=== PATIENT | female | born 1935 | race Caucasian/White ===

== ENCOUNTER 2018-04-23 09:35 | Observation (INO) ==
[2018-04-23] MEDS ORDERED: Aspirin 325 MG Tablet PO ONE (09:40)
--- NOTE | 2018-04-23 09:45 | ED ---
HPI General Chief Complaint: Chest Pain Stated Complaint: chest pain Time Seen by Provider: 04/23/18 09:40 Source: patient Mode of arrival: ambulatory Limitations: no limitations History of Present Illness HPI narrative: 83-year-old female patient with history of atrial fibrillation currently on Pradaxa, hypertension, high cholesterol, presents to the ER today because she woke up this morning with a 9 out of 10 left sided pressure-like chest discomfort or radiation down to her left arm. She states it is now subsiding and is currently a 4 -5 out of 10. She denies any vomiting, coughing , shortness of breath, fevers, or other symptoms. She states that symptoms have occurred in the past, and she states that it is usually minor and it goes away on its own. Related Data Home Medications Medication Instructions Recorded Confirmed amlodipine-benazepril 1 tab PO HS 04/23/18 04/23/18 dabigatran etexilate [Pradaxa] 1 tab PO BID 04/23/18 04/23/18 metoprolol tartrate 1 tab PO BID 04/23/18 04/23/18 simvastatin 20 mg PO QPM 04/23/18 04/23/18 Allergies Allergy/AdvReac Type Severity Reaction Status Date / Time No Known Allergies Allergy Verified 04/23/18 09:39 Review of Systems ROS: all other systems reviewed are negative PMFSH History History Provided By: Patient Medical History Medical History Aortic stenosis (Acute) Atrial fibrillation (Acute) Social History Social History Substance History: No History of Abuse Second Hand Smoke Exposure: No Smoking Status: Never smoker How Often Do You Have a Drink Containing Alcohol: Never Recent Travel in [facility] within the Last 8 Weeks: No Recent Out of Country Travel within the Last 8 Weeks: No Exam Narrative Exam Narrative: GENERAL: Well-developed elderly female patient currently and mild to moderate distress. Awake and oriented x3. SKIN: Focused skin assessment warm/dry. HEAD: Atraumatic. Normocephalic. EYES: Pupils equal and round. No scleral icterus. No injection or drainage. ENT: No nasal bleeding or discharge. Mucous membranes pink and moist. NECK: Trachea midline. No JVD. CARDIOVASCULAR: Fast and irregularly irregular. RESPIRATORY: No accessory muscle use. Clear to auscultation. Breath sounds equal bilaterally. GASTROINTESTINAL: Abdomen soft, non-tender, nondistended. Hepatic and splenic margins not palpable. MUSCULOSKELETAL: No obvious deformities. No clubbing. No cyanosis. No edema. NEUROLOGICAL: Awake and alert. No obvious cranial nerve deficits. Motor grossly within normal limits. Normal speech. PSYCHIATRIC: Appropriate mood and affect; insight and judgment normal. Course Initial Documented Vital Signs Temperature 97.4 F L 04/23/18 09:40 Pulse Rate 92 H 04/23/18 09:40 Respiratory Rate 18 04/23/18 09:40 Blood Pressure 128/90 04/23/18 09:40 Pulse Oximetry 98 04/23/18 09:40 Last Documented Vital Signs Temperature 97.4 F L 04/23/18 09:40 Pulse Rate 77 04/23/18 09:41 Respiratory Rate 16 04/23/18 10:39 Blood Pressure 128/90 04/23/18 09:40 Pulse Oximetry 97 04/23/18 09:41 Medical Decision Making MDM Narrative Medical decision making narrative: ACS versus dysrhythmias versus anxiety attack. EKG shows A. fib with RVR, patient has previous history of A. fib. Vital signs are stable otherwise. Her heart rate came down on its own to 70s in the ER without further therapy. Chest x-ray was fairly unremarkable. Lab work was fairly unremarkable. However, considering patient's medical history, I think that she should get her heart further evaluated. Case is discussed with Dr. Ambrose for admission. Medical Screen Exam Complete: Yes Emergency Medical Condition: Yes Differential Diagnosis Differential Diagnosis: Dysrhythmias versus ACS versus anxiety attack Lab Data Result diagrams: 04/23/18 09:41 04/23/18 09:41 Lab Results 04/23/18 04/23/18 Range/Units 09:41 09:41 CBC w Diff Auto diff final WBC 6.1 (4.0-11.0) th/mm3 RBC 4.39 (4.00-5.30) mil/mm3 Hgb 14.0 (11.6-15.3) gm/dL Hct 41.7 (35.0-46.0) % MCV 94.9 (80.0-100.0) fL MCH 31.9 (27.0-34.0) pg MCHC 33.6 (32.0-36.0) % RDW 12.8 (11.6-17.2) % Plt Count 240 (150-450) th/mm3 MPV 7.7 (7.0-11.0) fL Neut % (Auto) 60.4 (16.0-70.0) % Lymph % (Auto) 25.2 (9.0-44.0) % [place] % (Auto) 9.3 H (0.0-8.0) % Eos % (Auto) 3.6 (0.0-4.0) % Baso % (Auto) 1.5 (0.0-2.0) % Neut # (Auto) 3.7 (1.8-7.7) th/mm3 Lymph # (Auto) 1.5 (1.0-4.8) th/mm3 [place] # (Auto) 0.6 (0.0-0.9) th/mm3 Eos # (Auto) 0.2 (0.0-0.4) th/mm3 Baso # (Auto) 0.1 (0.0-0.2) th/mm3 WBC Differential . Differential Comment . Sodium 140 (136-145) meq/L Potassium 3.6 (3.5-5.1) meq/L Chloride 104 (98-107) meq/L Carbon Dioxide 26.2 (21.0-32.0) meq/L Anion Gap 10 (5-15) meq/L BUN 12 (7-18) mg/dL Creatinine 0.87 (0.50-1.00) mg/dL Estimated GFR 62 L (>89) mL/min Random Glucose 119 H (74-106) mg/dL Calcium 9.3 (8.5-10.1) mg/dL Total Bilirubin 0.9 (0.2-1.0) mg/dL AST 21 (15-37) U/L ALT 20 (10-53) U/L Alkaline Phosphatase 85 (45-117) U/L Troponin I Less than 0.02 L (0.02-0.05) ng/mL Total Protein 7.6 (6.4-8.2) g/dL Albumin 3.9 (3.4-5.0) g/dL Imaging Data Attestation: I personally reviewed and interpreted this imaging study as follows : Radiologist's impression: Chest X-Ray 04/23/18 09:41 CONCLUSION: No acute disease ECG Data Attestation: I personally reviewed and interpreted this ECG as follows: Interpretation: EKG shows atrial fibrillation with RVR at a rate of 100 bpm. No signs of acute ST elevations or depressions. Discharge Plan Discharge Disposition Patient Disposition: 30 Still Patient Discharge Condition Condition: Stable Discharge Details Anticipated Discharge Date: 04/23/18 Diagnosis: Atypical chest pain Physicians Team ED Provider: Benjie Juraez Primary Care Provider: NON STAFF,PROVIDER Rxs /Orders / Referrals /Forms Prescriptions: No Action amlodipine-benazepril 2.5-10 mg Capsule 1 tab PO HS RF: 0 simvastatin 20 mg Tablet 20 mg PO QPM RF: 0 metoprolol tartrate 25 mg Tablet 1 tab PO BID RF: 0 dabigatran etexilate [Pradaxa] 75 mg Capsule 1 tab PO BID RF: 0 Discharge Instructions Patient Printed Instructions: Chest Pain (ED) Status ED Status: With Doctor
[2018-04-23 09:52] LABS: Baso # (Auto) 0.1 th/mm3 (0.0-0.2); Baso % (Auto) 1.5 % (0.0-2.0); Eos # (Auto) 0.2 th/mm3 (0.0-0.4); Eos % (Auto) 3.6 % (0.0-4.0); Hematocrit 41.7 % (35.0-46.0); Lymph # (Auto) 1.5 th/mm3 (1.0-4.8); Lymph % (Auto) 25.2 % (9.0-44.0); Mean Corpuscular HGB Conc 33.6 % (32.0-36.0); Mean Corpuscular Hemoglobin 31.9 pg (27.0-34.0); Mean Corpuscular Volume 94.9 fL (80.0-100.0); Mean Platelet Volume 7.7 fL (7.0-11.0); Mono # (Auto) 0.6 th/mm3 (0.0-0.9); Mono % (Auto) 9.3 % (0.0-8.0); Neut # (Auto) 3.7 th/mm3 (1.8-7.7); Neut % (Auto) 60.4 % (16.0-70.0); Platelet Count 240 th/mm3 (150-450); Red Blood Count 4.39 mil/mm3 (4.00-5.30); Red Cell Distribution Width 12.8 % (11.6-17.2); White Blood Count 6.1 th/mm3 (4.0-11.0)
--- NOTE | 2018-04-23 10:04 | XR ---
EXAM DATE: 04/23/2018 9:41 AM EDT AGE/SEX: 83 years / Female INDICATIONS: Patient states chest pains. CLINICAL DATA: This is the patient's initial encounter. Patient reports that signs and symptoms have been present for 1 day and indicates a pain score of 6/10. MEDICAL/SURGICAL HISTORY: . A-Fib None. COMPARISON: No prior exams available for comparison. FINDINGS: Lungs are focally clear. No pleural effusion evident. Cardiac contours are satisfactory with borderli ne heart size. CONCLUSION: No acute disease Electronically signed by: Aki Ascencio MD 04/23/2018 10:03 AM EDT
[2018-04-23 10:16] LABS: Calcium 9.3 mg/dL (8.5-10.1)
[2018-04-23 10:17] LABS: Albumin 3.9 g/dL (3.4-5.0); Blood Urea Nitrogen 12 mg/dL (7-18); Carbon Dioxide 26.2 meq/L (21.0-32.0); Glucose,Random 119 mg/dL (74-106)
[2018-04-23 10:20] LABS: Alanine Aminotransferase 20 U/L (10-53); Aspartate Aminotransferase 21 U/L (15-37); Glomerular Filtration Rate 62 mL/min (>89)
[2018-04-23 10:21] LABS: Total Protein 7.6 g/dL (6.4-8.2)
[2018-04-23 10:23] LABS: Alkaline Phosphatase 85 U/L (45-117); Anion Gap 10 meq/L (5-15); Chloride 104 meq/L (98-107); Potassium 3.6 meq/L (3.5-5.1); Sodium 140 meq/L (136-145)
[2018-04-23] MEDS ORDERED: Acetaminophen 325 MG Tablet PO PRN (15:00)
[2018-04-23 15:25] LABS: Troponin I 0.1 ng/mL (0.02-0.05)
--- NOTE | 2018-04-23 15:46 | P.CONCA ---
History of Present Illness Primary Care Provider: PROVIDER NON STAFF History of Present Illness: 83-year-old female with a past medical history of atrial fibrillation on Pradaxa , mild to moderate aortic stenosis, HTN, HLD who presented for chest pain. 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 She was concerned because she had an episode of chest pain this morning at rest lasting about 1 minute and came for evaluation of this. She states she gets chest pains occasionally, but this lasted longer than her occasional chest pains and she was concerned. She denies any prior history of CAD. She reports she last had a nuclear stress test about 3 years ago that was reportedly normal. She reports her last echocardiogram was approximately a year and a half ago. EKG on presentation shows A. fib, rate 83, no ischemic changes noted. Troponin 0.02->0.10. Review of Systems All other systems reviewed negative except as stated in HPI PMFSH - History History Provided By: Patient - Medical History Medical History: Medical History (Last Updated 04/23/18 @ 15:37 by LEMUEL Morales) Aortic stenosis Atrial fibrillation HLD (hyperlipidemia) HTN (hypertension) - Tobacco History Second Hand Smoke Exposure: No Tobacco Use In Past 30 Days: No Smoking Status: Never smoker - Alcohol History How Often Do You Have a Drink Containing Alcohol: Never - Substance Use History Substance History: No History of Abuse - Travel History Recent Travel in the [place] Within the Last 8 Weeks: No Recent Travel Out of the Country Within the Last 8 Weeks: No - Immunization History Tetanus Immunization: Unsure Medications and Allergies Active Medications: Active Medications Acetaminophen (Tylenol) 650 mg PO Q4H PRN PRN Reason: Temp > 100.4 Al Hydroxide/Mg Hydroxide (Milk Of Nick Liq) 30 ml PO Q12H PRN PRN Reason: Mild Constipation Ondansetron HCl (Zofran Inj) 4 mg IV.PUSH Q6H PRN PRN Reason: NAUSEA OR VOMITING Sodium Chloride (Ns Flush) 2 ml IV.FLUSH UNSCH PRN PRN Reason: FLUSH AFTER USING IV ACCESS Allergies Allergy/AdvReac Type Severity Reaction Status Date / Time No Known Allergies Allergy Verified 04/23/18 09:39 Home Medications Medication Instructions Recorded Confirmed Type amlodipine-benazepril 1 tab PO HS 04/23/18 04/23/18 History dabigatran etexilate [Pradaxa] 1 tab PO BID 04/23/18 04/23/18 History metoprolol tartrate 1 tab PO BID 04/23/18 04/23/18 History simvastatin 20 mg PO QPM 04/23/18 04/23/18 History Exam Vital signs: Vital Signs 04/23/18 09:40 04/23/18 09:41 04/23/18 09:55 Temperature 97.4 F L Pulse Rate 92 H 77 86 Respiratory Rate 18 Blood Pressure 128/90 Pulse Oximetry 98 97 98 04/23/18 09:58 04/23/18 10:00 04/23/18 10:39 Temperature Pulse Rate 80 78 Respiratory Rate 16 Blood Pressure 114/61 Pulse Oximetry 98 97 04/23/18 10:58 04/23/18 11:00 04/23/18 12:00 Temperature 97.0 F L Pulse Rate 72 72 83 Respiratory Rate 20 Blood Pressure 108/69 126/85 Pulse Oximetry 95 94 L Intake & Output 04/22/18 04/23/18 04/23/18 18:59 06:59 18:59 Weight 180 lb 12.465 oz Narrative: GENERAL: Well-developed well-nourished. In no acute distress. NECK: No carotid bruits. No JVD. CARDIOVASCULAR: Irregular controlled rate and irregular rhythm. 1/6 CONSUELO appreciated. RESPIRATORY: No accessory muscle use. Clear to auscultation. Breath sounds equal bilaterally. MUSCULOSKELETAL: No clubbing or cyanosis. No edema. NEUROLOGICAL: Awake and alert. Normal speech. Results 04/23/18 09:41 04/23/18 09:41 Cardiac Enzymes 04/23/18 04/23/18 Range/Units 09:41 14:40 AST 21 (15-37) U/L Troponin I Less than 0.02 L 0.10 H (0.02-0.05) ng/mL CBC 04/23/18 Range/Units 09:41 WBC 6.1 (4.0-11.0) th/mm3 RBC 4.39 (4.00-5.30) mil/mm3 Hgb 14.0 (11.6-15.3) gm/dL Hct 41.7 (35.0-46.0) % Plt Count 240 (150-450) th/mm3 Neut # (Auto) 3.7 (1.8-7.7) th/mm3 Lymph # (Auto) 1.5 (1.0-4.8) th/mm3 [place] # (Auto) 0.6 (0.0-0.9) th/mm3 Eos # (Auto) 0.2 (0.0-0.4) th/mm3 Baso # (Auto) 0.1 (0.0-0.2) th/mm3 Comprehensive Metabolic Panel 04/23/18 Range/Units 09:41 Sodium 140 (136-145) meq/L Potassium 3.6 (3.5-5.1) meq/L Chloride 104 (98-107) meq/L Carbon Dioxide 26.2 (21.0-32.0) meq/L BUN 12 (7-18) mg/dL Creatinine 0.87 (0.50-1.00) mg/dL Calcium 9.3 (8.5-10.1) mg/dL AST 21 (15-37) U/L ALT 20 (10-53) U/L Alkaline Phosphatase 85 (45-117) U/L Total Protein 7.6 (6.4-8.2) g/dL Albumin 3.9 (3.4-5.0) g/dL Intake and Output 04/23/18 04/23/18 04/23/18 06:59 14:59 22:59 Other: Weight 180 lb 12.465 oz Patient Weight 04/24/18 06:59 Weight 180 lb 12.465 oz - Imaging and Cardiology Imaging: Impressions Chest X-Ray 04/23/18 09:41 CONCLUSION: No acute disease Assessment and Plan - Plan 83-year-old female with a past medical history of atrial fibrillation on Pradaxa , mild to moderate aortic stenosis, HTN, HLD who presented for chest pain Chest pain with elevated troponin: Possible NSTEMI. Continue aspirin. Lovenox for now. Transfer to [facility] for [facility] of [facility]. Continue statin. Atrial fibrillation: Chronic. Continue metoprolol for rate control. Hold Pradaxa and anticoagulation with Lovenox for now. Aortic stenosis: Reportedly mild to moderate per patient. Updated echocardiogram ordered. Discussed Condition With: Patient, RN, hospitalist, Dr. Saucedo
--- NOTE | 2018-04-23 16:04 | P.HP ---
History of Present Illness Primary Care Physician: PROVIDER NON STAFF Chief Complaint: Chest pain History of Present Illness: 83-year-old female for past medical history of hypertension, hyperlipidemia, atrial fibrillation on Pradaxa, mild aortic stenosis presented to the ED for evaluation acute onset of substernal chest pain rated 5/10 in intensity without any radiation or associated diaphoresis. The pain was described as sharp and lasted well over 10 minutes. Patient denies any inciting events. She has no GI bleed. Initial cardiac enzyme was 0.02 however a follow-up went up to 0.1. - Diagnosis (1) NSTEMI (non-ST elevation myocardial infarction) (2) Atrial flutter, paroxysmal Review of Systems All other systems reviewed negative except as stated in HPI PMFSH - History History Provided By: Patient - Medical History Medical History: Medical History (Last Updated 04/23/18 @ 15:37 by LEMUEL Morales) Aortic stenosis Atrial fibrillation HLD (hyperlipidemia) HTN (hypertension) - Family History Family History: Family History (Last Updated 04/23/18 @ 15:58 by Shawn Ambrose MD) Other No history of heart disease - Tobacco History Second Hand Smoke Exposure: No Tobacco Use In Past 30 Days: No Smoking Status: Never smoker - Alcohol History How Often Do You Have a Drink Containing Alcohol: Never - Substance Use History Substance History: No History of Abuse - Travel History Recent Travel in the [place] Within the Last 8 Weeks: No Recent Travel Out of the Country Within the Last 8 Weeks: No - Immunization History Tetanus Immunization: Unsure Medications and Allergies Active Medications: Active Medications Acetaminophen (Tylenol) 650 mg PO Q4H PRN PRN Reason: Temp > 100.4 Al Hydroxide/Mg Hydroxide (Milk Of Nick Liq) 30 ml PO Q12H PRN PRN Reason: Mild Constipation Aspirin (Ecotrin) 81 mg PO DAILY JOSELITO Enoxaparin Sodium (Lovenox Inj) 90 mg SQ Q12HR JOSELITO Ondansetron HCl (Zofran Inj) 4 mg IV.PUSH Q6H PRN PRN Reason: NAUSEA OR VOMITING Sodium Chloride (Ns Flush) 2 ml IV.FLUSH UNSCH PRN PRN Reason: FLUSH AFTER USING IV ACCESS Allergies Allergy/AdvReac Type Severity Reaction Status Date / Time No Known Allergies Allergy Verified 04/23/18 09:39 Home Medications Medication Instructions Recorded Confirmed Type amlodipine-benazepril 1 tab PO HS 04/23/18 04/23/18 History dabigatran etexilate [Pradaxa] 1 tab PO BID 04/23/18 04/23/18 History metoprolol tartrate 1 tab PO BID 04/23/18 04/23/18 History simvastatin 20 mg PO QPM 04/23/18 04/23/18 History Exam Vital signs: Vital Signs 04/23/18 09:40 04/23/18 09:41 04/23/18 09:55 Temperature 97.4 F L Pulse Rate 92 H 77 86 Respiratory Rate 18 Blood Pressure 128/90 Pulse Oximetry 98 97 98 04/23/18 09:58 04/23/18 10:00 04/23/18 10:39 Temperature Pulse Rate 80 78 Respiratory Rate 16 Blood Pressure 114/61 Pulse Oximetry 98 97 04/23/18 10:58 04/23/18 11:00 04/23/18 12:00 Temperature 97.0 F L Pulse Rate 72 72 83 Respiratory Rate 20 Blood Pressure 108/69 126/85 Pulse Oximetry 95 94 L Intake & Output 04/22/18 04/23/18 04/23/18 18:59 06:59 18:59 Weight 82 kg Narrative: GENERAL: NAD SKIN: Warm and dry. HEAD: Atraumatic. Normocephalic. EYES: Pupils equal and round. No scleral icterus. No injection or drainage. ENT: No nasal bleeding or discharge. Mucous membranes pink and moist. NECK: Trachea midline. No JVD. CARDIOVASCULAR: irreg Regular rate and rhythm. RESPIRATORY: No accessory muscle use. Clear to auscultation. Breath sounds equal bilaterally. GASTROINTESTINAL: Abdomen soft, non-tender, nondistended. Hepatic and splenic margins not palpable. MUSCULOSKELETAL: Extremities without clubbing, cyanosis, or edema. No obvious deformities. NEUROLOGICAL: Awake and alert. No obvious cranial nerve deficits. Motor grossly within normal limits. Five out of 5 muscle strength in the arms and legs. Normal speech. PSYCHIATRIC: Appropriate mood and affect; insight and judgment normal. Results - Labs CBC & Chem 7: 04/23/18 09:41 04/23/18 09:41 Labs: Laboratory Results - last 24 hr 04/23/18 04/23/18 04/23/18 09:41 09:41 14:40 CBC w Diff Auto diff final WBC 6.1 RBC 4.39 Hgb 14.0 Hct 41.7 MCV 94.9 MCH 31.9 MCHC 33.6 RDW 12.8 Plt Count 240 MPV 7.7 Neut % (Auto) 60.4 Lymph % (Auto) 25.2 [place] % (Auto) 9.3 H Eos % (Auto) 3.6 Baso % (Auto) 1.5 Neut # (Auto) 3.7 Lymph # (Auto) 1.5 [place] # (Auto) 0.6 Eos # (Auto) 0.2 Baso # (Auto) 0.1 WBC Differential . Differential Comment . Sodium 140 Potassium 3.6 Chloride 104 Carbon Dioxide 26.2 Anion Gap 10 BUN 12 Creatinine 0.87 Estimated GFR 62 L Random Glucose 119 H Calcium 9.3 Total Bilirubin 0.9 AST 21 ALT 20 Alkaline Phosphatase 85 Total Creatine Kinase 59 Troponin I Less than 0.02 L 0.10 H Total Protein 7.6 Albumin 3.9 - Imaging Impressions Chest X-Ray 04/23/18 09:41 CONCLUSION: No acute disease Caprini VTE Risk Assessment Caprini VTE Risk Assessment: Moderate/High Risk (score >= 2) Caprini Risk Assessment Model: Point Value = 1 Point Value = 2 Point Value = 3 Point Value = 5 Age 41-60 Minor surgery BMI > 25 kg/m2 Swollen legs Varicose veins or History of unexplained or recurrent spontaneous Oral contraceptives or hormone replacement Sepsis (< 1 month) Serious lung disease, including pneumonia (< 1 month) Abnormal pulmonary function Acute myocardial infarction Congestive heart failure (< 1 month) History of inflammatory bowel disease Medical patient at bed rest Age 61-74 Arthroscopic surgery Major open surgery (> 45 min) Laparoscopic surgery (> 45 min) Malignancy Confined to bed (> 72 hours) Immobilizing plaster cast Central venous access Age >= 75 History of VTE Family history of VTE Factor V Leiden Prothrombin [id number] Lupus anticoagulant Anticardiolipin antibodies Elevated serum homocysteine Heparin-induced thrombocytopenia Other congenital or acquired thrombophilia Stroke (< 1 month) Elective arthroplasty Hip, pelvis, or leg fracture Acute spinal cord injury (< 1 month) Prophylaxis Regimen: Total Risk Factor Score Risk Level Prophylaxis Regimen 0-1 Low Early ambulation 2 Moderate Order ONE of the following: *Sequential Compression Device (SCD) *Heparin 5000 units SQ BID 3-4 Higher Order ONE of the following medications: *Heparin 5000 units SQ TID *Enoxaparin/Lovenox 40 mg SQ daily (WT < 150 kg, CrCl > 30 mL/min) *Enoxaparin/Lovenox 30 mg SQ daily (WT < 150 kg, CrCl > 10-29 mL/min) *Enoxaparin/Lovenox 30 mg SQ BID (WT < 150 kg, CrCl > 30 mL/min) AND/OR *Sequential Compression Device (SCD) 5 or more Highest Order ONE of the following medications: *Heparin 5000 units SQ TID (Preferred with Epidurals) *Enoxaparin/Lovenox 40 mg SQ daily (WT < 150 kg, CrCl > 30 mL/min) *Enoxaparin/Lovenox 30 mg SQ daily (WT < 150 kg, CrCl > 10-29 mL/min) *Enoxaparin/Lovenox 30 mg SQ BID (WT < 150 kg, CrCl > 30 mL/min) AND *Sequential Compression Device (SCD) Assessment and Plan - Assessment (1) NSTEMI (non-ST elevation myocardial infarction) Code(s): I21.4 - Non-ST elevation (NSTEMI) myocardial infarction Status: Acute (2) Atrial flutter, paroxysmal Code(s): I48.92 - Unspecified atrial flutter Status: Acute - Plan 83-year-old female with Non-ST elevation AR Cardiology consulted for possible evaluation for left heart catheterization Will resume statin, beta-shorty and hold Pradaxa. Start Lovenox Transfer patient to [facility] Telemetry monitoring, nitroglycerin sublingual Check 2D echo Chronic atrial fibrillation Resume beta-shorty, hold Pradaxa Other chronic medical conditions Resume outpatient medications DVT prophylaxis: Lovenox
[2018-04-23] MEDS: Enoxaparin Inj 100 MG/ML Syringe SQ SCH (20:02)
[2018-04-23] MEDS: Metoprolol Tartrate 25 MG Tablet PO SCH (20:13)
[2018-04-23 22:13] LABS: Troponin I 0.05 ng/mL (0.02-0.05)
[2018-04-24 04:17] LABS: Baso # (Auto) 0.1 th/mm3 (0.0-0.2); Eos # (Auto) 0.2 th/mm3 (0.0-0.4); Hematocrit 39.2 % (35.0-46.0); Hemoglobin 13.3 gm/dL (11.6-15.3); Lymph # (Auto) 1.4 th/mm3 (1.0-4.8); Mean Corpuscular Hemoglobin 32.2 pg (27.0-34.0); Mean Corpuscular Volume 94.7 fL (80.0-100.0); Mean Platelet Volume 7.7 fL (7.0-11.0); Mono # (Auto) 0.7 th/mm3 (0.0-0.9); Mono % (Auto) 10.5 % (0.0-8.0); Neut # (Auto) 4.5 th/mm3 (1.8-7.7); Neut % (Auto) 65.5 % (16.0-70.0); Platelet Count 201 th/mm3 (150-450); Red Blood Count 4.15 mil/mm3 (4.00-5.30); Red Cell Distribution Width 12.9 % (11.6-17.2); White Blood Count 6.8 th/mm3 (4.0-11.0)
[2018-04-24 04:54] LABS: Alanine Aminotransferase 15 U/L (10-53); Albumin 3.4 g/dL (3.4-5.0); Anion Gap 10 meq/L (5-15); Aspartate Aminotransferase 18 U/L (15-37); Blood Urea Nitrogen 12 mg/dL (7-18); Calcium 8.8 mg/dL (8.5-10.1); Carbon Dioxide 27.4 meq/L (21.0-32.0); Chloride 106 meq/L (98-107); Glomerular Filtration Rate 81 mL/min (>89); Glucose,Random 97 mg/dL (74-106); Potassium 4.1 meq/L (3.5-5.1); Sodium 143 meq/L (136-145)
[2018-04-24 04:56] LABS: Alkaline Phosphatase 72 U/L (45-117); Total Protein 6.8 g/dL (6.4-8.2)
[2018-04-24] MEDS: Metoprolol Tartrate 25 MG Tablet PO SCH (08:33)
[2018-04-24] MEDS: Enoxaparin Inj 100 MG/ML Syringe SQ SCH (08:36)
--- NOTE | 2018-04-24 09:23 | P.PNCA ---
Subjective Interval history: One episode of sharp chest pain lasting 2 minutes Sitting up in a chair with no complaints Eager to go home Medications and Allergies Active Medications: Active Medications Acetaminophen (Tylenol) 650 mg PO Q4H PRN PRN Reason: Temp > 100.4 Al Hydroxide/Mg Hydroxide (Milk Of Magnrachael Liq) 30 ml PO Q12H PRN PRN Reason: Mild Constipation Aspirin (Ecotrin) 81 mg PO DAILY [facility] Last Admin: 04/24/18 08:33 Dose: 81 mg Enoxaparin Sodium (Lovenox Inj) 90 mg SQ Q12HR [facility] Last Admin: 04/24/18 08:36 Dose: Not Given Metoprolol Tartrate (Lopressor) 25 mg PO BID [facility] Last Admin: 04/24/18 08:33 Dose: 25 mg Nitroglycerin (Nitrostat Sl) 0.4 mg SL Q5M PRN PRN Reason: CHEST PAIN Ondansetron HCl (Zofran Inj) 4 mg IV.PUSH Q6H PRN PRN Reason: NAUSEA OR VOMITING Pravastatin Sodium (Pravachol) 20 mg PO QPM [facility] Last Admin: 04/23/18 20:13 Dose: 20 mg Sodium Chloride (Ns Flush) 2 ml IV.FLUSH UNSCH PRN PRN Reason: FLUSH AFTER USING IV ACCESS Allergies Allergy/AdvReac Type Severity Reaction Status Date / Time No Known Allergies Allergy Verified 04/23/18 09:39 Home Medications Medication Instructions Recorded Confirmed Type amlodipine-benazepril 1 tab PO HS 04/23/18 04/23/18 History dabigatran etexilate [Pradaxa] 1 tab PO BID 04/23/18 04/23/18 History metoprolol tartrate 1 tab PO BID 04/23/18 04/23/18 History simvastatin 10 mg PO QPM 04/23/18 04/23/18 History Physical Exam Vital signs: Vital Signs 04/23/18 09:40 04/23/18 09:41 04/23/18 09:55 Temperature 97.4 F L Pulse Rate 92 H 77 86 Respiratory Rate 18 Blood Pressure 128/90 Pulse Oximetry 98 97 98 04/23/18 09:58 04/23/18 10:00 04/23/18 10:39 Temperature Pulse Rate 80 78 Respiratory Rate 16 Blood Pressure 114/61 Pulse Oximetry 98 97 04/23/18 10:58 04/23/18 11:00 04/23/18 12:00 Temperature 97.0 F L Pulse Rate 72 72 83 Respiratory Rate 20 Blood Pressure 108/69 126/85 Pulse Oximetry 95 94 L 04/23/18 16:00 04/23/18 20:00 04/24/18 01:03 Temperature 96.8 F L 96.9 F L 97.7 F Pulse Rate 76 78 89 Respiratory Rate 20 20 18 Blood Pressure 122/69 128/70 144/83 H Pulse Oximetry 94 L 97 96 04/24/18 02:00 04/24/18 03:00 04/24/18 04:00 Temperature 97.9 F Pulse Rate 62 64 103 H Respiratory Rate 18 Blood Pressure 145/85 H Pulse Oximetry 98 04/24/18 05:00 04/24/18 06:00 Temperature Pulse Rate 98 H 82 Respiratory Rate Blood Pressure Pulse Oximetry Intake & Output 04/23/18 04/24/18 04/24/18 18:59 06:59 18:59 Intake Total 480 / 480 Output Total 200 / 200 Balance 480 / 480 -200 / -200 Weight 82 kg Intake: Oral 480 / 480 Output: Urine 200 / 200 Other: # Voids 1 - Constitutional no acute distress - Routine HEENT Exam Eye: Present: EOMI, PERRL ENT: Present: mucous membranes moist - Routine Neck Exam Absent: JVD - Routine Respiratory Exam Present: CTA bilaterally - Routine Cardiovascular Exam Present: RRR, murmur - Routine Abdominal Exam Present: soft, normoactive bowel sounds - Routine Extremities Exam Present: full ROM. Absent: clubbing, edema - Routine Neurological Exam Present: oriented X3, CN II-XII intact. Absent: sensory deficit, motor deficit Results 04/24/18 03:36 04/24/18 03:36 Cardiac Enzymes 04/23/18 04/23/18 04/23/18 Range/Units 09:41 14:40 21:20 AST 21 (15-37) U/L Troponin I Less than 0.02 L 0.10 H 0.05 (0.02-0.05) ng/mL 04/24/18 Range/Units 03:36 AST 18 (15-37) U/L Troponin I (0.02-0.05) ng/mL CBC 04/23/18 04/24/18 Range/Units 09:41 03:36 WBC 6.1 6.8 (4.0-11.0) th/mm3 RBC 4.39 4.15 (4.00-5.30) mil/mm3 Hgb 14.0 13.3 (11.6-15.3) gm/dL Hct 41.7 39.2 (35.0-46.0) % Plt Count 240 201 (150-450) th/mm3 Neut # (Auto) 3.7 4.5 (1.8-7.7) th/mm3 Lymph # (Auto) 1.5 1.4 (1.0-4.8) th/mm3 [place] # (Auto) 0.6 0.7 (0.0-0.9) th/mm3 Eos # (Auto) 0.2 0.2 (0.0-0.4) th/mm3 Baso # (Auto) 0.1 0.1 (0.0-0.2) th/mm3 Comprehensive Metabolic Panel 04/23/18 04/24/18 Range/Units 09:41 03:36 Sodium 140 143 (136-145) meq/L Potassium 3.6 4.1 (3.5-5.1) meq/L Chloride 104 106 (98-107) meq/L Carbon Dioxide 26.2 27.4 (21.0-32.0) meq/L BUN 12 12 (7-18) mg/dL Creatinine 0.87 0.69 (0.50-1.00) mg/dL Calcium 9.3 8.8 (8.5-10.1) mg/dL AST 21 18 (15-37) U/L ALT 20 15 (10-53) U/L Alkaline Phosphatase 85 72 (45-117) U/L Total Protein 7.6 6.8 D (6.4-8.2) g/dL Albumin 3.9 3.4 (3.4-5.0) g/dL Intake and Output 04/23/18 04/24/18 04/24/18 22:59 06:59 14:59 Intake Total 480 / 480 Output Total 200 / 200 Balance 480 / 480 -200 / -200 Intake: Oral 480 / 480 Output: Urine 200 / 200 Other: # Voids 1 - Imaging and Cardiology Imaging: Impressions Chest X-Ray 04/23/18 09:41 CONCLUSION: No acute disease Assessment and Plan - Plan 83-year-old female with a past medical history of atrial fibrillation on Pradaxa , mild to moderate aortic stenosis, HTN, HLD who presented for chest pain Chest pain with elevated troponin: Possible NSTEMI. Continue aspirin. Lovenox for now. Transfer to [facility] for consideration of [facility]. Continue statin. Atrial fibrillation: Chronic. Continue metoprolol for rate control. Hold Pradaxa and anticoagulation with Lovenox for now. Aortic stenosis: Reportedly mild to moderate per patient. Updated echocardiogram ordered. - Attending Attestation Elevated troponinsymptoms are somewhat atypical. They are nonexertional. Symptoms last only a few minutes at a time. Patient has no prior history of known heart disease. Troponin was elevated and she was transferred for consideration of cardiac catheterization. Troponin is now trended back down into the intermediate range. Patient is currently chest pain-free. We had a long discussion about potential options. Patient is going to be here till Thursday for heart catheterization if we proceeded in that direction. Given the atypical presentation and borderline troponin elevation, if the nuclear stress test was completely normal, we could consider medical management and outpatient follow-up with a logistics director in [place]. Patient was agreeable to proceed. We will plan for Lexiscan here this morning. Patient does have mild to moderate aortic valve stenosis which she has been asymptomatic.
--- NOTE | 2018-04-24 10:54 | P.PNIM ---
Subjective Interval history: Patient reports she is feeling better. No chest pain or shortness of breath. Physical Exam Vital signs: Vital Signs 04/23/18 10:58 04/23/18 11:00 04/23/18 12:00 Temperature 97.0 F L Pulse Rate 72 72 83 Respiratory Rate 20 Blood Pressure 108/69 126/85 Pulse Oximetry 95 94 L 04/23/18 16:00 04/23/18 20:00 04/24/18 01:03 Temperature 96.8 F L 96.9 F L 97.7 F Pulse Rate 76 78 89 Respiratory Rate 20 20 18 Blood Pressure 122/69 128/70 144/83 H Pulse Oximetry 94 L 97 96 04/24/18 02:00 04/24/18 03:00 04/24/18 04:00 Temperature 97.9 F Pulse Rate 62 64 103 H Respiratory Rate 18 Blood Pressure 145/85 H Pulse Oximetry 98 04/24/18 05:00 04/24/18 06:00 04/24/18 07:00 Temperature Pulse Rate 98 H 82 105 H Respiratory Rate Blood Pressure Pulse Oximetry 04/24/18 08:00 Temperature 97.9 F Pulse Rate 95 H Respiratory Rate 18 Blood Pressure 142/85 H Pulse Oximetry 94 L Intake & Output 04/23/18 04/24/18 04/24/18 18:59 06:59 18:59 Intake Total 480 / 480 Output Total 200 / 200 Balance 480 / 480 -200 / -200 Weight 82 kg Intake: Oral 480 / 480 Output: Urine 200 / 200 Other: # Voids 1 Narrative: GENERAL: This is a well-nourished, well-developed patient, in no apparent distress. CARDIOVASCULAR: Normal rate and irregular rhythm without murmurs, gallops, or rubs. RESPIRATORY: Good respiratory efforts. Breath sounds equal and clear to auscultation bilaterally. GASTROINTESTINAL: Abdomen soft, non-tender, non-distended. Normal active bowel sounds MUSCULOSKELETAL: Extremities without cyanosis, or edema. NEURO: Alert & Oriented x4 to person, place, time, situation. Moves all ext x4 PSYCH: Appropriate mood and affect. Results - Labs CBC & Chem 7: 04/24/18 03:36 04/24/18 03:36 Laboratory Results - last 24 hr 04/23/18 04/23/18 04/24/18 14:40 21:20 03:36 WBC 6.8 RBC 4.15 Hgb 13.3 Hct 39.2 MCV 94.7 MCH 32.2 MCHC 34.0 RDW 12.9 Plt Count 201 MPV 7.7 Neut % (Auto) 65.5 Lymph % (Auto) 20.0 [place] % (Auto) 10.5 H Eos % (Auto) 3.0 Baso % (Auto) 1.0 Neut # (Auto) 4.5 Lymph # (Auto) 1.4 [place] # (Auto) 0.7 Eos # (Auto) 0.2 Baso # (Auto) 0.1 WBC Differential . Differential Comment Auto diff final Sodium Potassium Chloride Carbon Dioxide Anion Gap BUN Creatinine Estimated GFR Random Glucose Calcium Total Bilirubin AST ALT Alkaline Phosphatase Total Creatine Kinase 59 61 Troponin I 0.10 H 0.05 Total Protein Albumin 04/24/18 03:36 WBC RBC Hgb Hct MCV MCH MCHC RDW Plt Count MPV Neut % (Auto) Lymph % (Auto) [place] % (Auto) Eos % (Auto) Baso % (Auto) Neut # (Auto) Lymph # (Auto) [place] # (Auto) Eos # (Auto) Baso # (Auto) WBC Differential Differential Comment Sodium 143 Potassium 4.1 Chloride 106 Carbon Dioxide 27.4 Anion Gap 10 BUN 12 Creatinine 0.69 Estimated GFR 81 L Random Glucose 97 Calcium 8.8 Total Bilirubin 1.0 AST 18 ALT 15 Alkaline Phosphatase 72 Total Creatine Kinase Troponin I Total Protein 6.8 D Albumin 3.4 Assessment and Plan - Assessment (1) NSTEMI (non-ST elevation myocardial infarction) Code(s): I21.4 - Non-ST elevation (NSTEMI) myocardial infarction Status: Acute (2) Atrial flutter, paroxysmal Code(s): I48.92 - Unspecified atrial flutter Status: Acute - Plan 83-year-old female with Non-ST elevation OR Cardiology following. The patient is symptom-free. Her nuclear stress test showed a focal fixed perfusion defect associated with hypokinesis involving the cardiac apex. The remainder of the heart demonstrates normal perfusion and wall motion. Ejection fraction is normal. I discussed the case with Dr. esposito. At this point she will be manage medically. 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 Continue statin, beta-shorty and resume Pradaxa on discharge Chronic atrial fibrillation Resume beta-shorty, resume Pradaxa Other chronic medical conditions Resume outpatient medications Discharge Planning: Discharge patient to home Condition on discharge: Improved Regular Diet as tolerated Ad Consuelo activity Rx written: None Follow-up with primary care physician
[2018-04-24] MEDS ORDERED: Regadenoson Inj 0.4 MG/5 ML Syringe IV.PUSH ONE (11:39)
--- NOTE | 2018-04-24 12:37 | ECG ---
Date Performed: 04/23/2018 Time Performed: 09:33:10 PTAGE: 83 years EKG: ATRIAL FIBRILLATION WITH SOMEWHAT RAPID VENTRICULAR RESPONSE NONSPECIFIC ST-T CHANGE AXIS V ERTICAL ABNORMAL ECG NO PREVIOUS TRACING DOCTOR: Chucho Sales Interpretating Date/Time 04/24/2018 12:36:57
--- NOTE | 2018-04-24 12:37 | ECG ---
Date Performed: 04/23/2018 Time Performed: 14:53:45 PTAGE: 83 years EKG: ATRIAL FIBRILLATION VERTICAL QRS AXIS MINOR NONSPECIFIC ST-T CHANGE ABNORMAL ECG Since PREVIOUS TRACING , no significant change noted PREVIOUS TRACIN04/23/2018 09.33 DOCTOR: Chucho Sales Interpretating Date/Time 04/24/2018 12:37:25
--- NOTE | 2018-04-24 12:40 | ECG ---
Date Performed: 04/23/2018 Time Performed: 21:17:19 PTAGE: 83 years EKG: ATRIAL FIBRILLATION VERTICAL QRS AXIS NONSPECIFIC ST-T CHANGE POOR INITIAL ANTERIOR FORCES WHICH MAY BE NORMAL VARIANT Compared to previous tracing, there is loss of R-force in V3, but this ma y be due to lead placement, otherwise no signficant change. ABNORMAL ECG PREVIOUS TRACING : 04/23/2018 14.53 DOCTOR: Chucho Sales Interpretating Date/Time 04/24/2018 12:38:42
--- NOTE | 2018-04-24 13:35 | NM ---
EXAM DATE: 04/24/2018 11:59 AM EDT AGE/SEX: 83 years / Female INDICATIONS:Angina. . Sharp chest pain with abnormal EKG. CLINICAL DATA: This is the patient's initial encounter. Patient reports that signs and symptoms have been present for 1 day and indicates a pain score of 3/10. MEDICAL/SURGICAL HISTORY: Hypercholesterolemia. Hypertension. A-fib and aortic stenosis. . COMPARISON: No prior exams available for comparison. DOSE: 8.8 mCi Tc 99m Myoview at rest 27.2 mCi [id number] at stress 0.4 mg Lexiscan STRESS SYMPTOMS: Shortness of breath and abdominal cramping. EJECTION FRACTION: 64 % TECHNIQUE: The patient underwent pharmacologic stress with infusion of prescribed dose. Continuous ECG tracing was monitored during stress. Gated SPECT imaging was performed after stress and conventi onal SPECT imaging was performed at rest. The examination was performed on a SPECT/CT scanner, both attenuation and non-corrected datasets were reviewed. FINDINGS: Distribution: The maximum perfused segment at stress is in the anterior wall. Perfusion Study: There is a small focal fixed defect involving the apex of the heart. Gated Study: There is dyskinesis identified at the apex of the heart with the remainder of the heart demonstrating normal wall motion and thickening. The ejection fraction is calculated at 64%. RISK CATEGORY: Low (<1% Annual Motality Rate) CONCLUSION: 1. Focal fixed perfusion defect associated with hypokinesis involving the cardiac apex. The remainde r of the heart demonstrates normal perfusion and wall motion. Ejection fraction is normal. Electronically signed by: Harriet Mann MD 04/24/2018 1:34 PM EDT
--- NOTE | 2018-04-24 17:53 | ECHRPT ---
Indication: Persistent atrial fibrillation CONCLUSIONS The left ventricular systolic function is moderately reduced with an estimated ejection fraction in the range of 40-45%. There was limited left ventricular wall motion assessment due to poor endocardial visualization. Mild mitral valve regurgitation. Mild aortic valve stenosis (peak grad 27, mean grad 18, VICKI 0.9). There is mild tricuspid regurgitation. BP: / HR: Rhythm: Sinus MEASUREMENTS (Male / Female) Normal Values Technical Quality:Technically difficult study 2D ECHO LV Diastolic Diameter PLAX 4.0 cm 4.2 - 5.9 / 3.9 - 5.3 cm LV Systolic Diameter PLAX 3.0 cm IVS Diastolic Thickness 1.1 cm 0.6 - 1.0 / 0.6 - 0.9 cm LVPW Diastolic Thickness 1.1 cm 0.6 - 1.0 / 0.6 - 0.9 cm LV Relative Wall Thickness 0.6 LVOT Diameter 2.0 cm M-MODE Aortic Root Diameter MM 2.2 cm LA Systolic Diameter MM 4.6 cm LA Ao Ratio MM 2.1 AV Cusp Separation MM 1.4 cm DOPPLER AV Peak Velocity 259.2 cm/s AV Peak Gradient 26.9 mmHg AV Mean Gradient 17.7 mmHg AV Velocity Time Integral 63.9 cm LVOT Peak Velocity 71.1 cm/s LVOT Peak Gradient 2.0 mmHg AV Area Cont Eq pk 0.9 cm MR Peak Velocity 282.0 cm/s MR Peak Gradient 31.8 mmHg LV E' Lateral Velocity 5.4 cm/s LV E' Septal Velocity 8.2 cm/s TR Peak Velocity 307.0 cm/s TR Peak Gradient 37.7 mmHg Right Atrial Pressure 10.0 mmHg Pulmonary Artery Systolic Pressu 47.7 mmHg Right Ventricular Systolic Press 47.7 mmHg PV Peak Velocity 166.0 cm/s PV Peak Gradient 11.0 mmHg FINDINGS LEFT VENTRICLE Normal left ventricular size. The left ventricular systolic function is moderately reduced with an estimated ejection fraction in the range of 40-45%. There was limited left ventricular wall motion assessment due to poor endocardial visualization. RIGHT VENTRICLE The right ventricular size is normal. LEFT ATRIUM The left atrial size is mildly dilated. RIGHT ATRIUM The right atrium is not well visualized. ATRIAL SEPTUM The interatrial septum not well visualized. AORTA The aortic root and proximal ascending aorta are not well visualized. MITRAL VALVE Grossly normal Mild mitral valve regurgitation. AORTIC VALVE The aortic valve is not well visualized. No aortic valve regurgitation. Mild aortic valve stenosis (peak grad 27, mean grad 18, VICKI 0.9). TRICUSPID VALVE There is mild tricuspid regurgitation. The estimated pulmonary arterial pressure is 47.7 mmHg. PULMONARY VALVE The pulmonary valve is not well visualized. Romeo Ramirez DO (Electronically Signed) Final Date:24 April 2018 17:52
== END 2018-04-24 16:00 | disposition home or self-care (01) ==
LOC: PHEDA 09:35 → PHED 09:35 → PH3 11:33 → HCIS 04-24 00:18
PROVIDERS: ADMIT Family Medicine; ATTEND Family Medicine